=== PATIENT | female | born 1955 | race Caucasian/White ===

== ENCOUNTER 2022-08-30 19:21 | Emergency (ER) | payer OTHER ==
[~2022-08-30] VITALS: Ht 165.1 cm; Wt 91.0 kg
[2022-08-30] MEDS ORDERED: PROMETHAZINE HCL 25 MG/ML 1ML IM ONE (20:00)
[2022-08-30] MEDS ORDERED: KETOROLAC TROMETH 30 MG/ML 1ML VIAL IM ONE (20:00)
[2022-08-30] MEDS ORDERED: diphenhdrAMINE HCL 50 MG/1 ML VL IM ONE (20:00)
[2022-08-31 00:13] VITALS: BP 145/70
== END 2022-08-31 00:25 | disposition home or self-care (01) ==
LOC: ER 19:21
DX: G43.909 Migraine, unspecified, not intractable, without status migrainosus (principal); Z88.0 Allergy status to penicillin
CPT/HCPCS: 96372; 99284; J1200; J1885; J2550

== ENCOUNTER 2022-12-21 03:54 | Emergency (ER) | payer OTHER ==
[~2022-12-21] VITALS: Ht 165.1 cm; Wt 91.0 kg
[2022-12-21] MEDS ORDERED: diphenhdrAMINE HCL 25 MG CAP PO ONE (06:45)
[2022-12-21] MEDS ORDERED: ONDANSETRON ODT 4 MG TAB PO ONE (06:45)
[2022-12-21] MEDS ORDERED: KETOROLAC TROMETH 60MG/2ML VIAL IM ONE (06:45)
[2022-12-21] MEDS ORDERED: UBRO50TA2 PO (09:41)
[2022-12-21 09:50] VITALS: BP 117/59; PULSE 84; RESP 16; TEMP 98.3; O2SAT 96
== END 2022-12-21 09:56 | disposition home or self-care (01) ==
LOC: ER 03:54
DX: G43.909 Migraine, unspecified, not intractable, without status migrainosus (principal); I10 Essential (primary) hypertension
CPT/HCPCS: 96372; 99283; J1885; Q0162

== ENCOUNTER 2023-08-13 12:06 | Emergency (ER) | payer OTHER ==
[~2023-08-13] VITALS: Ht 162.6 cm; Wt 90.1 kg
[~2023-08-13 12:06] MED LIST: UBRO50TA2 PO
[2023-08-13 13:03] LABS: COVID19 ANTIGEN SOFIA FIA NEGATIVE (NEGATIVE)
[2023-08-13 13:04] LABS: Rapid Influenza B Negative (Negative)
[2023-08-13 13:06] LABS: Rapid Influenza A Positive (Negative)
[2023-08-13] MEDS ORDERED: PRED10TA PO (13:29)
[2023-08-13] MEDS ORDERED: OSEL75CA5 PO (13:29)
[2023-08-13] MEDS ORDERED: ACET500T58 PO (13:29)
[2023-08-13 14:27] VITALS: BP 135/89; PULSE 95; RESP 17; TEMP 97.7; O2SAT 96
[2023-08-13] MEDS: OSELTAMIVIR 75 MG CAP PO ONE (14:32)
== END 2023-08-13 14:34 | disposition home or self-care (01) ==
LOC: ER 12:06
DX: J10.1 Influenza due to other identified influenza virus with other respiratory manifestations (principal); I10 Essential (primary) hypertension; Z90.49 Acquired absence of other specified parts of digestive tract; Z86.73 Personal history of transient ischemic attack (TIA), and cerebral infarction without residual deficits; Z20.822 Contact with and (suspected) exposure to COVID-19
CPT/HCPCS: 36415; 87426; 87804